=== PATIENT | male | born 1985 | race Native Hawaiian/Other Pacific Islander ===

== ENCOUNTER 2020-01-02 21:47 | Emergency (ER) | payer OTHER ==
[~2020-01-02] VITALS: Ht 165.1 cm; Wt 64.4 kg
[2020-01-03 00:55] VITALS: BP 125/78; TEMP 98.1
== END 2020-01-03 00:55 | disposition home or self-care (01) ==
LOC: ED 21:56
PROC: 0JQ10ZZ Repair Face Subcutaneous Tissue and Fascia, Open Approach (ICD-10-PCS; principal; 2020-01-02)
PROC: 0HQ1XZZ Repair Face Skin, External Approach (ICD-10-PCS; 2020-01-02)
DX: S01.21XA Laceration without foreign body of nose, initial encounter (principal); S01.82XA Laceration with foreign body of other part of head, initial encounter; W01.198A Fall on same level from slipping, tripping and stumbling with subsequent striking against other object, initial encounter; Y92.89 Other specified places as the place of occurrence of the external cause
CPT/HCPCS: 90471; 90715; 99283; J7040

== ENCOUNTER 2020-01-09 10:35 | Emergency (ER) | payer OTHER ==
[~2020-01-09] VITALS: Ht 165.1 cm; Wt 64.4 kg
[2020-01-09 11:10] VITALS: TEMP 98.6
[2020-01-09 12:04] VITALS: BP 134/78
== END 2020-01-09 12:09 | disposition home or self-care (01) ==
LOC: ED 10:35
DX: Z51.89 Encounter for other specified aftercare (principal)
CPT/HCPCS: 99281; 99282

== ENCOUNTER 2020-01-11 12:24 | Emergency (ER) | payer OTHER ==
[~2020-01-11] VITALS: Ht 165.1 cm; Wt 64.4 kg
[2020-01-11 12:34] VITALS: BP 138/79; TEMP 98.7
== END 2020-01-11 12:55 | disposition home or self-care (01) ==
LOC: ED 12:24
DX: Z48.02 Encounter for removal of sutures (principal)

== ENCOUNTER 2020-01-21 02:27 | Emergency (ER) | payer OTHER ==
[~2020-01-21] VITALS: Ht 165.1 cm; Wt 64.4 kg
[2020-01-21 05:20] VITALS: BP 128/72; TEMP 98.2
== END 2020-01-21 05:20 | disposition home or self-care (01) ==
LOC: ED 02:27
DX: G44.009 Cluster headache syndrome, unspecified, not intractable (principal); Z87.828 Personal history of other (healed) physical injury and trauma
CPT/HCPCS: 80307; 99283